=== PATIENT | female | born 1985 | race Hispanic/Latino ===

== ENCOUNTER 2021-02-08 10:13 | Emergency (ER) | payer BC ==
[2021-02-08 10:48] LABS: Urine Blood Negative (Negative); Urine Glucose Negative (Negative); Urine Protein Trace (Negative); Urine Specific Gravity >=1.030 (1.005-1.030)
--- NOTE | 2021-02-08 11:10 | ER ---
Nurse's Notes [facility] Name: Chioma Lagos Age: 35 yrs Sex: Female : 1985 Arrival Date: 02/08/2021 Time: 10:15 Bed 20 Private MD: Diagnosis: Adjustment disorder with depressed mood;Suicidal ideations Presentation: 02/08 10:19 Chief complaint: Patient states: pt reports that she answered "yes" at custodial when asked tr6 if she was suicidal. pt was offered the option of coming in ER voluntarily or come in by court order. pt reports that she has had suicidal thoughts over the past month after losing her to covid. pt reports that she has many stressors- 5 kids, financial after losing her , and grief. pt currently states that she believes it is more grief than suicidal. pt states that currently she denies SI, no plan, no action ever taken. Coronavirus screen: At this time, unable to obtain information related to travel outside the [place] Ebola Screen: No symptoms or risks identified at this time. Initial Sepsis Screen: Does the patient meet any 2 criteria? No. Patient's initial sepsis screen is negative. Does the patient have a suspected source of infection? No. Patient's initial sepsis screen is negative. Risk Assessment: Do you want to hurt yourself or someone else? Patient reports no desire to harm self or others. Onset of symptoms is unknown. 10:19 Method Of Arrival: Ambulatory tr6 10:19 Acuity: AZAEL 2 tr6 Historical: - Allergies: 10:25 Vicodin; tr6 - PMHx: 10:23 vitamin d deficient; elevated liver enzymes; tr6 - PSHx: 10:23 tubal ligation; tr6 - Immunization history:: Adult Immunizations up to date, Client reports having NOT received the Covid vaccine. - Social history:: Smoking status: Patient denies any tobacco usage or history of. Patient uses street drugs, marijuana, former use of marijuana. Screenin:06 Abuse screen: Denies threats or abuse. Denies injuries from another. Nutritional tc5 screening: No deficits noted. Tuberculosis screening: No symptoms or risk factors identified. Fall Risk None identified. Assessment: 11:02 General: Appears in no apparent distress. Behavior is cooperative, appropriate for age, tc5 crying, pt reports not wanting to hurt herself but has a lot going on after her passing from [place] 01/01/21, she is left with 5 kids and bills due. pt is tearful, denies SI/HI at this time. pt reports she was pulled over for speeding this am and brought here for mental health.. Pain: Denies pain. Neuro: No deficits noted. Cardiovascular: No deficits noted. Respiratory: No deficits noted. GI: No deficits noted. : No deficits noted. Vital Signs: 10:19 BP 155 / 97; Pulse 75; Resp 13; Temp 98.4; Pulse Ox 98.4% on R/A; Weight 62.6 kg; tr6 Height 4 ft. 7 in. (139.70 cm); Pain 0/10; 10:19 Body Mass Index 32.07 (62.60 kg, 139.70 cm) tr6 ED Course: 10:15 Patient arrived in ED. as 10:23 Ascencion Alvarado MD is Attending Physician. [facility] 10:23 Triage completed. tr6 10:53 Gely Hill RN is Primary Nurse. tc5 11:09 Kranthi Santillan MD is Referral Physician. [facility] Administered Medications: No medications were administered Outcome: 11:10 Discharge ordered by . [facility] 11:23 Patient left the ED. tc5 Signatures: Ascencion Alvarado MD MD cha Martinez, Amelia as Ramnanan, Tiffany, RN RN tr6 Gely Hill RN RN tc5 Corrections: (The following items were deleted from the chart) 10:26 10:23 Allergies: No Known Allergies; tr6 tr6 10:27 10:19 Chief complaint: Patient states: pt reports that she answered "yes" at custodial when tr6 asked if she was suicidal. pt was offered the option of coming in ER voluntarily or come in by court order. pt reports that she has had suicidal thoughts over the past month after losing her to [place]vi. pt currently states that she believes it is more grief than suicidal. pt states that currently she denies SI, no plan, no action ever taken. tr6
--- NOTE | 2021-02-08 11:10 | EDPHYS ---
Physician Documentation [facility] Name: Chioma Lagos Age: 35 yrs Sex: Female : 1985 Arrival Date: 02/08/2021 Time: 10:15 Bed 20 Private MD: OREN Physician Ascencion Alvarado HPI: 02/08 11:06 This 35 yrs old Female presents to ER via Ambulatory with complaints of mental jacob health. 11:06 The patient presents to the emergency department with depression. Onset: The jacob symptoms/episode began/occurred 3 day(s) ago. Past psychiatric history: Prior diagnosis: depression. Associated signs and symptoms: The patient has no apparent associated signs or symptoms. Severity of symptoms: At their worst the symptoms were mild in the emergency department the symptoms are unchanged. The patient has not experienced similar symptoms in the past. Historical: - Allergies: 10:25 Vicodin; tr6 - PMHx: 10:23 vitamin d deficient; elevated liver enzymes; tr6 - PSHx: 10:23 tubal ligation; tr6 - Immunization history:: Adult Immunizations up to date, Client reports having NOT received the Covid vaccine. - Social history:: Smoking status: Patient denies any tobacco usage or history of. Patient uses street drugs, marijuana, former use of marijuana. ROS: 11:06 Constitutional: Negative for fever, chills, and weight loss, Eyes: Negative for injury, jacob pain, redness, and discharge, ENT: Negative for injury, pain, and discharge, Neck: Negative for injury, pain, and swelling, Cardiovascular: Negative for chest pain, palpitations, and edema, Respiratory: Negative for shortness of breath, cough, wheezing, and pleuritic chest pain, Abdomen/GI: Negative for abdominal pain, nausea, vomiting, diarrhea, and constipation, Back: Negative for injury and pain, : Negative for injury, bleeding, discharge, and swelling, MS/Extremity: Negative for injury and deformity, Skin: Negative for injury, rash, and discoloration, Neuro: Negative for headache, weakness, numbness, tingling, and seizure, Allergy/Immunology: Negative for hives, rash, and allergies, Endocrine: Negative for neck swelling, polydipsia, polyuria, polyphagia, and marked weight changes, Hematologic/Lymphatic: Negative for swollen nodes, abnormal bleeding, and unusual bruising. 11:06 Psych: Positive for depression, suicidal ideation. Exam: 11:06 Constitutional: This is a well developed, well nourished patient who is awake, alert, jacob and in no acute distress. Head/Face: Normocephalic, atraumatic. Eyes: Pupils equal round and reactive to light, extra-ocular motions intact. Lids and lashes normal. Conjunctiva and sclera are non-icteric and not injected. Cornea within normal limits. Periorbital areas with no swelling, redness, or edema. ENT: Nares patent. No nasal discharge, no septal abnormalities noted. Tympanic membranes are normal and external auditory canals are clear. Oropharynx with no redness, swelling, or masses, exudates, or evidence of obstruction, uvula midline. Mucous membranes moist. Neck: Trachea midline, no thyromegaly or masses palpated, and no cervical lymphadenopathy. Supple, full range of motion without nuchal rigidity, or vertebral point tenderness. No Meningismus. Chest/axilla: Normal chest wall appearance and motion. Nontender with no deformity. No lesions are appreciated. Cardiovascular: Regular rate and rhythm with a normal S1 and S2. No gallops, murmurs, or rubs. Normal PMI, no JVD. No pulse deficits. Respiratory: Lungs have equal breath sounds bilaterally, clear to auscultation and percussion. No rales, rhonchi or wheezes noted. No increased work of breathing, no retractions or nasal flaring. Abdomen/GI: Soft, non-tender, with normal bowel sounds. No distension or tympany. No guarding or rebound. No evidence of tenderness throughout. Back: No spinal tenderness. No costovertebral tenderness. Full range of motion. Skin: Warm, dry with normal turgor. Normal color with no rashes, no lesions, and no evidence of cellulitis. MS/ Extremity: Pulses equal, no cyanosis. Neurovascular intact. Full, normal range of motion. Neuro: Awake and alert, GCS 15, oriented to person, place, time, and situation. Cranial nerves II-XII grossly intact. Motor strength 5/5 in all extremities. Sensory grossly intact. Cerebellar exam normal. Normal gait. Psych: Awake, alert, with orientation to person, place and time. Behavior, mood, and affect are within normal limits. 11:06 Psych: Behavior/mood is pleasant, Affect is calm, Oriented to person, place, time, Patient has no thoughts/intents to harm self or others. Judgement / Insight is normal. Memory is normal. Delusions/hallucinations are not present. Vital Signs: 10:19 BP 155 / 97; Pulse 75; Resp 13; Temp 98.4; Pulse Ox 98.4% on R/A; Weight 62.6 kg; tr6 Height 4 ft. 7 in. (139.70 cm); Pain 0/10; 10:19 Body Mass Index 32.07 (62.60 kg, 139.70 cm) tr6 MDM: 10:45 Patient medically screened. jacob 11:08 Differential diagnosis: depression. Data reviewed: vital signs, nurses notes. Data jacob interpreted: finish mender: not applicable for this patient encounter. rate is 75 beats/min, rhythm is regular, Pulse oximetry: on room air is 98 %. Counseling: I had a detailed discussion with the patient and/or guardian regarding: the historical points, exam findings, and any diagnostic results supporting the discharge/admit diagnosis, lab results, radiology results, the need for outpatient follow up, for definitive care, a family practitioner, a psychiatrist. 02/08 10:45 Order name: Acetaminophen [facility] 02/08 10:45 Order name: Basic Metabolic Panel [facility] 02/08 10:47 Order name: Urine Dipstick-Ancillary [facility] 02/08 11:04 Order name: Urine --Ancillary (enter results) [facility] 02/08 11:04 Order name: Urine --Ancillary [facility] 02/08 10:45 Order name: EKG; Complete Time: 10:46 [facility] 02/08 10:45 Order name: EKG - Nurse/Tech [facility] 02/08 10:45 Order name: IV Saline Lock [facility] 02/08 10:45 Order name: Labs collected and sent [facility] 02/08 10:45 Order name: Suicide Screening ([place]) [facility] 02/08 10:45 Order name: Urine Dipstick-Ancillary (obtain specimen); Complete Time: 11:03 [facility] 02/08 10:45 Order name: Urine Test (obtain specimen); Complete Time: 11:03 [facility] Administered Medications: No medications were administered Disposition Summary: 02/08/21 11:10 Discharge Ordered Location: Home [facility] Problem: new jacob Symptoms: have improved jacob Condition: Stable jacob Diagnosis - Adjustment disorder with depressed mood jacob - Suicidal ideations jacob Followup: jacob - With: Private Physician - When: 2 - 3 days - Reason: Recheck today's complaints, Continuance of care, Re-evaluation by your physician Followup: jacob - With: Kranthi Santillan MD - When: 1 - 2 days - Reason: Recheck today's complaints, Re-evaluation by your physician Discharge Instructions: - Discharge Summary Sheet jacob - Adjustment Disorder, Adult jacob - Helping Someone Who is Suicidal jacob - Complicated Grief jacob Forms: - Medication Reconciliation Form jacob - Thank You Letter jacob - Antibiotic Education jacob - Prescription Opioid Use jacob Signatures: Dispatcher [employer] EDAscencion Mckinney MD MD cha Ramnanan, Tiffany RN RN tr6 Corrections: (The following items were deleted from the chart) 10:26 10:23 Allergies: No Known Allergies; tr6 tr6
[2021-02-08 11:26] LABS: Urine Specific Gravity/Preg >1.030 (1.005-1.030)
[2021-02-08 11:29] VITALS: BP 155/97; TEMP 98.4
== END 2021-02-08 11:23 | disposition home or self-care (01) ==
LOC: ER 10:13
DX: F43.21 Adjustment disorder with depressed mood (principal); R45.851 Suicidal ideations
CPT/HCPCS: 81003; 81025; 99281